=== PATIENT | male | born 1990 | race Caucasian/White ===

== ENCOUNTER 2017-06-11 17:38 | Outpatient (CLI) | payer SELFPAY | END 2017-06-11 17:39 | disposition home or self-care (01) | LOC: NAV LAB 17:38 | DX: Z02.1 Encounter for pre-employment examination (principal) | CPT/HCPCS: 99001 ==

== ENCOUNTER 2018-10-31 03:23 | Outpatient (CLI) | payer OTHER, SELFPAY | END 2018-10-31 03:24 | disposition home or self-care (01) | LOC: NAV ERS 03:23 → NAV LAB 03:23 → EDSTATUS 03:39 | PROVIDERS: ATTEND Pathology Anatomic Pathology & Clinical Pathology | DX: Z51.81 Encounter for therapeutic drug level monitoring (principal); Z79.899 Other long term (current) drug therapy | CPT/HCPCS: 99001 ==